=== PATIENT | female | born 1990 | race Caucasian/White ===

== ENCOUNTER → 2016-12-11 | Outpatient (CLI) | payer OTHER ==
[2016-12-11 17:02] LABS: URINE APPEARANCE CLEAR (CLEAR); URINE BILIRUBIN NEG (NEG); URINE COLOR YELLOW; URINE EPITHELIAL CELL AUTO >30 /lpf (0-5); URINE NITRITE NEG (NEG); URINE PH 6.5 (4.5-7.5); URINE SPECIFIC GRAVITY 1.004 (1.000-1.030); UROBILINOGEN NEG (NEG)
[2016-12-11 17:06] LABS: MANUAL MICROSCOPIC REQUIRED? NO; REVIEW REQ? NO
== END | disposition home or self-care (01) ==
LOC: C.LABSPEC 16:18
PROVIDERS: ATTEND Obstetrics & Gynecology
DX: Z34.00 Encounter for supervision of normal first pregnancy, unspecified trimester (principal)

== ENCOUNTER → 2016-12-18 | Outpatient (CLI) | payer OTHER ==
[2016-12-18 14:31] LABS: BASO % 0.1 %; BASO ABS # 0.01 K/uL (0-0.2); COMPLETE YES; HEMATOCRIT 38.1 % (37-47); IG% 0.2 %; LYMPH % 18.3 %; LYMPH ABS # 1.72 K/uL (1.2-3.4); MEAN CELL VOLUME 81.4 fL (80-100); MEAN CORPUSCULAR HEMOGLOBIN 27.1 pg (25-34); MEAN CORPUSCULAR HGB CONC 33.3 g/dl (32-36); MONO % 6.7 %; NEUT % 74.7 %; PLATELET COUNT 323 K/uL (130-400); RED BLOOD COUNT 4.68 M/uL (4.2-5.4); WHITE BLOOD COUNT 9.38 K/uL (4.8-10.8)
[2016-12-21 03:20] LABS: CHLAMYDIA TRACH RNA*** NOT DETECTED (NOT DETECTED); GC (NEIS GONORRHOEAE)RNA** NOT DETECTED (NOT DETECTED)
== END | disposition home or self-care (01) ==
LOC: C.LAB1850 12:40
PROVIDERS: ATTEND Obstetrics & Gynecology
DX: Z34.00 Encounter for supervision of normal first pregnancy, unspecified trimester (principal)

== ENCOUNTER → 2016-12-18 | Outpatient (CLI) | payer OTHER | END | disposition home or self-care (01) | LOC: C.PAPS 16:08 | PROVIDERS: ATTEND Obstetrics & Gynecology | DX: Z12.4 Encounter for screening for malignant neoplasm of cervix (principal) ==

== ENCOUNTER → 2017-01-15 | Outpatient (CLI) | payer OTHER ==
[~2017-01-15] MED LIST: MTR600X PO; OXYC-57 PO
== END | disposition home or self-care (01) ==
LOC: C.LABSPEC 15:16
PROVIDERS: ATTEND Obstetrics & Gynecology
DX: Z34.01 Encounter for supervision of normal first pregnancy, first trimester (principal)

== ENCOUNTER → 2017-02-12 | Outpatient (CLI) | payer OTHER ==
[2017-02-12 19:47] LABS: GTGD 50 Grams
[2017-02-14 15:02] LABS: AFP CONCENTRATION 29.1 NG/ML; AFP MULTIPLE OF MEDIAN 0.93; AFPTS GESTATIONAL AGE 16.7 WEEKS; AFPTS INSULIN DEP DIABETIC? NO; AFPTS MATERNAL WT 185 LBS; ALPHA-FETOPROTEIN RACE CAUCASIAN=W; HISTORY OF NTD NO; REPEAT SAMPLE? NO
== END | disposition home or self-care (01) ==
LOC: C.LAB1850 14:02
PROVIDERS: ATTEND Obstetrics & Gynecology
DX: Z34.01 Encounter for supervision of normal first pregnancy, first trimester (principal)

== ENCOUNTER → 2017-05-07 | Outpatient (CLI) | payer OTHER ==
[2017-05-07 12:06] LABS: HEMATOCRIT 35.3 % (37-47)
[2017-05-07 12:53] LABS: GTGD 50 Grams
[2017-05-07 15:15] LABS: URINE APPEARANCE CLEAR (CLEAR); URINE BILIRUBIN NEG (NEG); URINE COLOR YELLOW; URINE EPITHELIAL CELL AUTO >30 /lpf (0-5); URINE NITRITE NEG (NEG); URINE SPECIFIC GRAVITY 1.016 (1.000-1.030); UROBILINOGEN NEG (NEG)
[2017-05-07 15:22] LABS: MANUAL MICROSCOPIC REQUIRED? NO; REVIEW REQ? NO
== END | disposition home or self-care (01) ==
LOC: C.LAB1850 10:21
PROVIDERS: ATTEND Obstetrics & Gynecology
DX: Z34.02 Encounter for supervision of normal first pregnancy, second trimester (principal)

== ENCOUNTER → 2017-07-02 | Outpatient (CLI) | payer OTHER | END | disposition home or self-care (01) | LOC: C.LABSPEC 15:59 | PROVIDERS: ATTEND Obstetrics & Gynecology | DX: Z34.03 Encounter for supervision of normal first pregnancy, third trimester (principal) ==

== ENCOUNTER 2017-07-30 14:01 | Inpatient (IN) | payer OTHER ==
[~2017-07-30] VITALS: Ht 162.6 cm; Wt 94.0 kg
[2017-07-30] MEDS ORDERED: LACTATED RINGER'S 1000ML 1,000 ML IV SCH ×2 (14:39→16:12)
[2017-07-30] MEDS ORDERED: CITRIC ACID/SODIUM CITRATE 15 ML UDC ONE (14:45)
[2017-07-30] MEDS ORDERED: CEFAZOLIN IV 1,000 MG in DEXTROSE 5% 50ML 50 ML IV ONE (14:45)
[2017-07-30] MEDS ORDERED: MoRPHine SULFATE PF 1 MG/ML 10 ML AMP/VIAL ONE (14:47)
[2017-07-30] MEDS ORDERED: PHENYLEPHRINE 100MCG/ML 5ML SYR ONE (14:47)
[2017-07-30] MEDS ORDERED: OXYTOCIN INJ 10 UNITS/ML VIAL ONE ×2 (14:47→16:03)
--- NOTE | 2017-07-30 14:48 | Medical Student: [facility] ---
Med Student History & Physical Date of Service Jul 30, 2017. Chief Complaint Recurrent decelerations on NST History of Present Illness Source: patient, clinic records 27 Year old F with , CRISPIN of 07/25/17 by LMP, 40 weeks and 5 days of GA presents for repetitive variable decelerations on Heart Tracing during NST. 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 She is feeling contractions but is unsure as to whether they are patterned or not. She believes that they have mostly been sporadic since Sunday. She denies any fluid leakage but states that she has had some red-brown discharge for the past couple days. She is feeling strong, consistent movement. She denies any SOB, chest pain, swelling of hands and feet. She states that she has felt some dizziness over the past 24 hours and some nausea but no vomiting. 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 GERD 2. Bipolar Disease Past Surgical History Tonsillectomy, adenoidectomy Social History Prior to : Socially drinks alcohol, none since . Denies any cigarette or other tobacco use, denies any recreational drug use. Smoking Status: Former Smoker Smokeless Tobacco Use: No Alcohol Use: none Drug Use: none Marital Status: Housing status: lives with family Occupational Status: employed Allergies Coded Allergies: NO KNOWN DRUG ALLERGIES (Verified Allergy, Unknown, `, 07/30/17) Review of Systems Constitutional: No fever, No chills Respiratory: No shortness of breath Cardiovascular: No chest pain Abdomen: No pain, No nausea, No vomiting Musculoskeletal: No swelling Genitourinary - Female: + vaginal bleeding (Some red-brown discharge, spotting. 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 Heart tracing shows variable recurrent decelerations. Plan: 1. Admit to L&D 2. Monitor mother and fetus with tocometer and External Monitoring 3. NPO, IVF 4. CBC, Cefazolin 5. Prepare for stat C/S THIS WAS NOT A STAT C/S although emergent, the findings did not require proceeding with stat c/s. Please disregard. JACQUELINE BRAND MD
[2017-07-30] MEDS ORDERED: CEFAZOLIN IV 2,000 MG in SYRINGE 0 ML IV STA (14:59)
[2017-07-30 15:18] LABS: BASO % 0.1 %; BASO ABS # 0.01 K/uL (0-0.2); HEMATOCRIT 35.5 % (37-47); IG% 0.7 %; LYMPH % 15.2 %; MEAN CELL VOLUME 79.6 fL (80-100); MEAN CORPUSCULAR HEMOGLOBIN 24.9 pg (25-34); MEAN PLATELET VOLUME 9.5 fL (7.4-10.4); MONO % 7.2 %; NEUT % 76.8 %; PLATELET COUNT 250 K/uL (130-400); RED BLOOD COUNT 4.46 M/uL (4.2-5.4); WHITE BLOOD COUNT 11.82 K/uL (4.8-10.8)
[2017-07-30 15:36] LABS: COMPLETE YES; MEAN CORPUSCULAR HGB CONC 31.3 g/dl (32-36)
[2017-07-30] MEDS ORDERED: ONDANSETRON INJ 2 MG/ML 2 ML VIAL ONE (15:51)
[2017-07-30] MEDS ORDERED: EpHEDrine SULFATE 50MG/5ML SYR ONE (15:59)
[2017-07-30] MEDS ORDERED: DIPHTHERIA/TETANUS/PERTUSSIS 0.5 ML SYR/VIAL IM. ONE (16:15)
[2017-07-30] MEDS ORDERED: LANOLIN OINT EXT PRN ×2 (16:15)
[2017-07-30] MEDS ORDERED: PROMETHAZINE HCL INJ 25 MG in SODIUM CHLORIDE 0.9% 50ML 50 ML IV PRN (16:15)
--- NOTE | 2017-07-30 16:25 | [facility] Operative Report ---
Operative Report Operative Date Jul 30, 2017. Pre-Operative Diagnosis 40+5 weeks intrauterine recurrent variable decelerations Post-Operative Diagnosis same meconium stained amniotic fluid nuchal cord x 2 cord wrapped around body Procedure(s) Performed Transverse primary Surgeon Dr. Coleman Supervisor Travel Trailer Surgeon(s) Nursing and Dr. Ayaal Estimated Blood Loss 700cc Findings viable male infant. Normal appearing uterus, fallopian tubes and ovaries bilaterally Fluids 1250cc Specimens cord gases cord blood placenta exam Drains corona, clear urine Anesthesia spinal Complication(s) None Disposition L&D Indications recurrent variable decelerations with closed cervix I attest to the content of the Intraoperative Record and any orders documented therein. Any exceptions are noted below.
[2017-07-30] MEDS ORDERED: OXYTOCIN INJ 20 UNITS in LACTATED RINGER'S 1000ML 1,000 ML IV SCH (16:30)
--- NOTE | 2017-07-30 16:32 | OPERATIVE REPORT ---
DATE OF OPERATION: 07/30/2017 PREOPERATIVE DIAGNOSES: 1. 40+ weeks intrauterine . 2. Category 2 heart rate tracing. 3. Remote from delivery. POSTOPERATIVE DIAGNOSES: 1. Same. 2. Old meconium stained fluid. 3. Nuchal cord x2 and body cord. PROCEDURE: Primary low transverse section. SURGEON: Dr. Jelena Coleman. SHANK TAPER: clinical dental technician. IV FLUIDS: 1250 mL. ESTIMATED BLOOD LOSS: 700 mL. ANESTHESIA: Spinal with Duramorph. FINDINGS: Viable male infant. Apgars pending at the time of this dictation. Evidence of old meconium stained fluid with a nuchal cord x2 and body cord noted. Uterus, tubes, and ovaries bilaterally normal. INDICATIONS: A 27-year-old 1, para 0 at 40 and 5/7 weeks estimated gestational age, who presented from the office when she was on the nonstress test monitor and variable decels were noted. The patient was closed. She is having intermittent contractions, but was not in active labor. Given the heart rate findings remote from delivery, it was recommended that she proceed with section and she agreed. DESCRIPTION OF PROCEDURE: The patient was taken to the operating room and identified. After adequate spinal anesthesia was obtained, she was placed in the supine position with a leftward tilt and prepped and draped in the usual sterile fashion. The knife was used to create a Pfannenstiel skin incision that was carried down to the underlying layer of fascia. The fascia was nicked in the midline and this opening was extended laterally using Taylor scissors. The rectus muscles were dissected off the overlying fascia both sharply and bluntly. This happened anteriorly and superiorly. The rectus muscles were bluntly in the midline. The peritoneal cavity was bluntly entered into. This opening was stretched. The bladder blade was placed. The vesicouterine peritoneum was elevated and opened up into sharply. This was extended laterally and the bladder flap was created digitally. The bladder blade was replaced. Knife was used to create a hysterotomy with identification of dark meconium fluid. The hysterotomy was then stretched. The shelf drier operator's hand was placed through the hysterotomy and the bladder blade was removed. With fundal pressure, the head was flexed and delivered. The nuchal cord x2 was reduced. The nose and mouth were bulb suctioned. The shoulders and body were delivered. The cord was doubly clamped and cut and the infant was handed off to the awaiting pediatricians. Cord blood and cord gases were obtained. The placenta was manually expressed. The uterus was exteriorized and cleared of all clots and debris. The hysterotomy was closed in a running interlocking fashion followed by a second imbricating layer of 0 Vicryl. Hemostasis was inadequate in the midline and therefore, 2 [id number] sutures of 0 Vicryl placed for excellent hemostasis. The pelvis was irrigated. The uterus was returned to the abdomen. The gutters were cleared of all clots and debris. The hysterotomy was reinspected and noted to be hemostatic. The fascia was then closed in a running fashion using 0 Vicryl. The subcutaneous fat was copiously irrigated. The subcutaneous tissue was reapproximated using 2-0 chromic. The skin was then closed in a subcuticular fashion using 4-0 Vicryl. All sponge, lap and needle counts were correct x2. The patient was returned to the recovery room in stable condition. I attest to the content of the Intraoperative Record and any orders documented therein. Any exception s are noted below.
[2017-07-30] MEDS ORDERED: NALOXONE HCL INJ 1 MG in SODIUM CHLORIDE 0.9% 1000ML 1,000 ML IV PRN (16:44)
[2017-07-30] MEDS ORDERED: NALOXONE HCL INJ 0.08 MG in SYRINGE 1.8 ML IV PRN (16:44)
[2017-07-30] MEDS ORDERED: SODIUM CHLORIDE 0.9% 1000ML 1,000 ML IV PRN (16:44)
[2017-07-30] MEDS ORDERED: LACTATED RINGER'S 1000ML 500 ML IV PRN (16:44)
[2017-07-30] MEDS ORDERED: MoRPHine SULFATE 2 MG/ML CARP IV PRN (16:45)
[2017-07-30] MEDS ORDERED: NO NARCOTICS OR SEDATIVES SCH (16:45)
[2017-07-30] MEDS ORDERED: NALOXONE HCL 0.4 MG/1 ML VIAL/CARP IV PRN (16:45)
[2017-07-30] MEDS ORDERED: DiphenhydrAMINE HCL 50 MG/ML VIAL IV PRN (16:45)
[2017-07-30] MEDS ORDERED: EpHEDrine SULFATE INJ 50 MG/ML AMP IV PRN (16:45)
[2017-07-30] MEDS ORDERED: NALBUPHINE HCL INJ 10 MG/ML AMP IV PRN (16:45)
[2017-07-30] MEDS ORDERED: MoRPHine SULFATE PF 1 MG/ML 10 ML AMP/VIAL IT ONE (16:45)
[2017-07-30] MEDS ORDERED: ONDANSETRON INJ 2 MG/ML 2 ML VIAL IV PRN (16:45)
--- NOTE | 2017-07-30 16:46 | Anesthesiology Progress Note ---
Anesthesia Post Op Note Date & Time Jul 30, 2017 at 16:46 Notes Mental Status: alert / awake / arousable, participated in evaluation Pt Amnestic to Procedure: Yes Nausea / Vomiting: adequately controlled Pain: adequately controlled Airway Patency, RR, SpO2: stable & adequate BP & HR: stable & adequate Hydration State: stable & adequate Neuraxial Anesthesia: was administered, sensory block is resolving Anesthetic Complications: no major complications apparent
--- NOTE | 2017-07-30 17:02 | Medical Student: [facility] ---
Immediate Operative Summary Operative Date Jul 30, 2017. Pre-Operative Diagnosis of 40 weeks 5 days with recurrent variable decelerations Post-Operative Diagnosis of 40 weeks 5 days with recurrent variable decelerations Procedure(s) Performed Low Transverse Section Surgeon Dr. Coleman Buckle Coverer Surgeon(s) Melissa Shultz, Steam Conditioning Operator Estimated Blood Loss 700cc Findings Fetus with nuchal chord x2, meconium stained amniotic fluid, and chord wrapped around the body. Normal uterus and adnexa Fluids (cc crystalloids) 1250 cc Specimens Placenta Chord Blood Drains Zavala Catheter Anesthesia Spinal Block Complication(s) None Disposition L&D
[2017-07-30] MEDS: KETOROLAC TROMETHAMINE 30 MG/ML VIAL IV. PRN (17:42)
[2017-07-30 18:07] VITALS: Ht 162.6 cm; Wt 94.0 kg
[2017-07-30] MEDS: SIMETHICONE 80 MG CHEW PO SCH (19:00)
[2017-07-30] MEDS: RANITIDINE HCL 150 MG TAB PO SCH (20:00)
[2017-07-30] MEDS: DOCUSATE SODIUM 100 MG CAP PO SCH (20:00)
[2017-07-30 20:17] LABS: HEMATOCRIT 29.3 % (37-47)
[2017-07-30 20:35] VITALS: O2SAT 100
[2017-07-30 20:40] VITALS: BP 102/68; PULSE 97; TEMP 36.9; O2SAT 100
[2017-07-30 21:30] VITALS: O2SAT 100
[2017-07-30 22:30] VITALS: O2SAT 99
[2017-07-30 23:55] VITALS: BP 104/70; PULSE 99; TEMP 37.2; O2SAT 100
[2017-07-31] VITALS (15 sets, daily range): BP systolic 94–110; BP diastolic 59–69; PULSE 89–116; TEMP 36.9–37.1; O2SAT 98–100
[2017-07-31] MEDS: KETOROLAC TROMETHAMINE 30 MG/ML VIAL IV. PRN (04:50)
[2017-07-31] MEDS ORDERED: CEFAZOLIN IV 2,000 MG in DEXTROSE 5% 50ML 50 ML IV SCH (06:00)
[2017-07-31 06:01] LABS: HEMATOCRIT 24.6 % (37-47); MEAN CELL VOLUME 79.4 fL (80-100); MEAN CORPUSCULAR HEMOGLOBIN 25.5 pg (25-34); MEAN CORPUSCULAR HGB CONC 32.1 g/dl (32-36); MEAN PLATELET VOLUME 9.3 fL (7.4-10.4); PLATELET COUNT 212 K/uL (130-400); WHITE BLOOD COUNT 14.21 K/uL (4.8-10.8)
--- NOTE | 2017-07-31 06:20 | OB/GYN Progress Note ---
PLUMBER PIPE FITTING Progress Note Date of Service Jul 31, 2017. Subjective conversation w/ patient, physical exam, chart review, lab review Ambulation: ambulating normally Voiding: no voiding problems Diet Tolerance: Regular Diet Lochia: Small Feeding Type: Breast Feeding Pain: mild pain Review of Systems Constitutional: No fever, No chills Cardiac: No chest pain Abdomen: No nausea, No vomiting Female : No dysuria Objective Vital Signs Date Time Temp Pulse Resp B/P (MAP) Pulse Ox O2 Delivery O2 Flow Rate FiO2 07/31/17 04:30 16 100 07/31/17 04:30 37.0 116 16 110/69 (83) 100 Room Air 07/31/17 03:15 16 99 07/31/17 02:00 16 100 07/31/17 01:00 18 100 07/30/17 23:55 100 Room Air 07/30/17 23:55 18 100 07/30/17 23:55 37.2 99 18 104/70 (81) 100 Room Air 07/30/17 22:30 16 99 07/30/17 21:30 18 100 07/30/17 20:40 36.9 97 16 102/68 (79) 100 Room Air 07/30/17 20:35 100 Room Air 07/30/17 20:35 18 100 Physical Exam General Appearance: WELL-APPEARING Respiratory/Chest: lungs clear, normal breath sounds Cardiovascular: regular rate, rhythm Abdomen: normal bowel sounds, non tender, soft Fundus: Firm, Relation to Umbilicus Incision Description: Clean, Dry & Intact Extremities: non-tender, no pedal edema Laboratory Results Last 24 Hours Test 07/30/17 14:55 07/30/17 20:07 07/31/17 05:41 White Blood Count 11.82 K/uL 14.21 K/uL Red Blood Count 4.46 M/uL 3.10 M/uL Hemoglobin 11.1 g/dL 9.4 g/dL 7.9 g/dL Hematocrit 35.5 % 29.3 % 24.6 % Mean Corpuscular Volume 79.6 fL 79.4 fL Mean Corpuscular Hemoglobin 24.9 pg 25.5 pg Mean Corpuscular Hemoglobin Concent 31.3 g/dl 32.1 g/dl Platelet Count 250 K/uL 212 K/uL Mean Platelet Volume 9.5 fL 9.3 fL Neutrophils (%) (Auto) 76.8 % Lymphocytes (%) (Auto) 15.2 % Monocytes (%) (Auto) 7.2 % Eosinophils (%) (Auto) 0.0 % Basophils (%) (Auto) 0.1 % Neutrophils # (Auto) 9.08 K/uL Lymphocytes # (Auto) 1.80 K/uL Monocytes # (Auto) 0.85 K/uL Eosinophils # (Auto) 0.00 K/uL Basophils # (Auto) 0.01 K/uL RDW Standard Deviation 40.3 fL 40.5 fL RDW Coefficient of Variation 14.0 % 14.0 % Immature Granulocyte % (Auto) 0.7 % Immature Granulocyte # (Auto) 0.08 K/uL Assessment and Plan Post-Op Day Number: 1 Continue Routine Care: A/P: This is a 27 y/o female, , s/p day 1. She is ambulating and clinically stable. Plan: - Vitals signs are reviewed and WNL (Tmax 37.2 ) - Last Hgb is 7.9 - Blood type O+, GBS pos, Rubella Immune - Routine post operative care - Encourage ambulation, monitor and control pain with medication as needed, continue with regular diet as tolerated and monitor lochia - Stool softeners and sitz bath recommended - Encourage breast feeding and educate about breast feeding Resident Involvement: Resident Care Provided Care Provided: OB Delivery
[2017-07-31 06:37] LABS: BASO % 0.1 %; BASO ABS # 0.01 K/uL (0-0.2); COMPLETE YES; EOS % 0.1 %; IG% 0.5 %; LYMPH % 11.8 %; LYMPH ABS # 1.68 K/uL (1.2-3.4); MONO % 8.2 %; NEUT % 79.3 %
--- NOTE | 2017-07-31 06:57 | Progress Note ---
Subjective Jul 31, 2017. Subjective conversation w/ patient, physical exam Ambulation: ambulating normally Voiding: corona catheter in place Passing Gas: Yes Diet Tolerance: Regular Diet Lochia: Small Comment: good pain control. she notes baby is intubated and sedated in [place]. she thinks the dx is pulmonary hypertension Objective Vital Signs Date Time Temp Pulse Resp B/P (MAP) Pulse Ox O2 Delivery O2 Flow Rate FiO2 07/31/17 06:20 16 100 07/31/17 05:30 16 99 07/31/17 04:30 16 100 07/31/17 04:30 37.0 116 16 110/69 (83) 100 Room Air 07/31/17 03:15 16 99 07/31/17 02:00 16 100 07/31/17 01:00 18 100 07/30/17 23:55 100 Room Air 07/30/17 23:55 18 100 07/30/17 23:55 37.2 99 18 104/70 (81) 100 Room Air 07/30/17 22:30 16 99 07/30/17 21:30 18 100 07/30/17 20:40 36.9 97 16 102/68 (79) 100 Room Air 07/30/17 20:35 100 Room Air 07/30/17 20:35 18 100 Physical Exam General Appearance: WELL-APPEARING, WD/WN, NO APPARENT DISTRESS Respiratory/Chest: lungs clear Cardiovascular: regular rate, rhythm Abdomen: non tender, soft Fundus: Firm, Tender (appropriately), Relation to Umbilicus (1 down) Incision Description: Clean, Dry & Intact Extremities: non-tender Laboratory Results Last 24 Hours Test 07/30/17 14:55 07/30/17 20:07 07/31/17 05:41 White Blood Count 11.82 K/uL 14.21 K/uL Red Blood Count 4.46 M/uL 3.10 M/uL Hemoglobin 11.1 g/dL 9.4 g/dL 7.9 g/dL Hematocrit 35.5 % 29.3 % 24.6 % Mean Corpuscular Volume 79.6 fL 79.4 fL Mean Corpuscular Hemoglobin 24.9 pg 25.5 pg Mean Corpuscular Hemoglobin Concent 31.3 g/dl 32.1 g/dl Platelet Count 250 K/uL 212 K/uL Mean Platelet Volume 9.5 fL 9.3 fL Neutrophils (%) (Auto) 76.8 % 79.3 % Lymphocytes (%) (Auto) 15.2 % 11.8 % Monocytes (%) (Auto) 7.2 % 8.2 % Eosinophils (%) (Auto) 0.0 % 0.1 % Basophils (%) (Auto) 0.1 % 0.1 % Neutrophils # (Auto) 9.08 K/uL 11.27 K/uL Lymphocytes # (Auto) 1.80 K/uL 1.68 K/uL Monocytes # (Auto) 0.85 K/uL 1.17 K/uL Eosinophils # (Auto) 0.00 K/uL 0.01 K/uL Basophils # (Auto) 0.01 K/uL 0.01 K/uL RDW Standard Deviation 40.3 fL 40.5 fL RDW Coefficient of Variation 14.0 % 14.0 % Immature Granulocyte % (Auto) 0.7 % 0.5 % Immature Granulocyte # (Auto) 0.08 K/uL 0.07 K/uL Red Blood Cell Morphology Unremarkable Assessment and Plan Post-, Post-Op Day#: 1 Continue Routine Care: stable, routine care. hgb this am is 7.9. ambulate, d/c corona and await void, adv diet. support given
[2017-07-31] MEDS ORDERED: NALBUPHINE HCL INJ 10 MG/ML AMP IV STA (07:28)
[2017-07-31] MEDS: PRENATAL VITAMIN TAB PO SCH (08:38)
[2017-07-31] MEDS: VENLAFAXINE HCL XR 75 MG CAPXR PO SCH (08:38)
[2017-07-31] MEDS: FERROUS SULFATE 325 MG TAB PO SCH (08:38)
[2017-07-31] MEDS: DOCUSATE SODIUM 100 MG CAP PO SCH ×2 (08:38→19:55)
[2017-07-31] MEDS: SIMETHICONE 80 MG CHEW PO SCH ×4 (08:39→19:54)
[2017-07-31] MEDS: RANITIDINE HCL 150 MG TAB PO SCH ×2 (08:39→19:54)
[2017-07-31] MEDS ORDERED: ONDANSETRON INJ 2 MG/ML 2 ML VIAL IV PRN (09:30)
[2017-07-31] MEDS ORDERED: KETOROLAC TROMETHAMINE 30 MG/ML VIAL IV. PRN (09:30)
[2017-07-31] MEDS ORDERED: ZOLPIDEM TARTRATE 5 MG TAB PO PRN (09:30)
[2017-07-31] MEDS ORDERED: OXYCODONE/ACETAMINOPHEN 5-325 TAB PO PRN (09:30)
[2017-07-31] MEDS ORDERED: DC INTRASPINAL MORPHINE SCH (09:30)
[2017-07-31] MEDS ORDERED: DiphenhydrAMINE HCL 50 MG/ML VIAL IV PRN (09:30)
[2017-07-31] MEDS: OXYCODONE/ACETAMINOPHEN 5-325 TAB PO PRN ×4 (09:32→22:14)
[2017-07-31] MEDS: IBUPROFEN 600 MG TAB PO PRN ×4 (09:32→22:13)
[2017-08-01] MEDS: OXYCODONE/ACETAMINOPHEN 5-325 TAB PO PRN (05:45)
[2017-08-01] MEDS: IBUPROFEN 600 MG TAB PO PRN (05:47)
[2017-08-01 06:31] LABS: HEMATOCRIT 22.7 % (37-47)
[2017-08-01 07:36] VITALS: BP 93/61; PULSE 98; TEMP 36.6; O2SAT 100
[2017-08-01] MEDS ORDERED: OXYC-57 PO (07:39)
[2017-08-01] MEDS ORDERED: MTR600X PO (07:39)
--- NOTE | 2017-08-01 07:39 | Progress Note ---
Subjective Aug 01, 2017. Subjective conversation w/ patient, physical exam, chart review Ambulation: ambulating normally Voiding: no voiding problems, corona catheter in place Diet Tolerance: Regular Diet Lochia: Small Objective Vital Signs Date Time Temp Pulse Resp B/P (MAP) Pulse Ox O2 Delivery O2 Flow Rate FiO2 07/31/17 23:10 Room Air 07/31/17 23:10 36.9 89 16 99/59 (72) 100 Room Air 07/31/17 15:30 100 Room Air 07/31/17 15:30 37.0 98 16 96/63 (74) 100 Room Air 07/31/17 11:55 37.0 100 18 105/69 (81) 99 Room Air 07/31/17 11:15 Room Air 07/31/17 09:30 20 100 07/31/17 08:45 98 Room Air 07/31/17 08:30 18 99 07/31/17 07:45 98 Room Air 07/31/17 07:45 16 98 Physical Exam General Appearance: WELL-APPEARING Abdomen: non tender Fundus: Firm Incision Description: Clean, Dry & Intact Extremities: no calf tenderness Laboratory Results Last 24 Hours Test 08/01/17 06:09 Hemoglobin 7.2 g/dL Hematocrit 22.7 % Assessment and Plan Post-, Post-Op Day#: 2 Continue Routine Care: home discussed Fe
--- NOTE | 2017-08-01 07:40 | Discharge Instructions ---
Discharge Instructions Date of Service Aug 01, 2017. Admission Reason for Admission: Prolonged Monitoring Discharge Discharge Diagnosis / Problem: C/S Discharge Goals Goal(s): Routine recovery after Activity Recommendations Activity Limitations: per Instructions/Follow-up section . Instructions / Follow-Up Instructions / Follow-Up ACTIVITY RECOMMENDATIONS: * Gradual return to full activity over the next 2-3 weeks. * No lifting - nothing heavier than baby over the next 2-3 weeks. * Do not engage in vigorous exercise, sexual activity or sports until cleared by your physician. * Do not drive or operate any motorized equipment until cleared by your physician. * You may shower/bathe daily. MEDICATIONS: For discomfort or pain, you may use Acetaminophen (Tylenol), Ibuprofen (Advil), or Naproxen (Aleve) following the package directions. For constipation you may use Colace following the package directions. BREAST CARE: If you are not breast feeding: * Wear a supportive bra 24 hours a day for one to two weeks. * Avoid stimulating your breasts and nipples as much as possible during the first few weeks after delivery. * When taking a shower, have the warm water hit your back, not breasts. * When your breasts feel full, apply ice packs. Usually three to four times a day helps ease the discomfort. * Take a mild pain medication (Tylenol / Motrin) when you are uncomfortable. If breast feeding: * Use breast milk to lubricate nipples. Lansinoh cream may be used for sore nipples. You do not need to remove cream prior to breast feeding. If using a different brand of cream, check the label for directions regarding removal of cream prior to nursing. * Wear a supportive bra. * If having problems with breasts or breast feeding, call a artist consultant or your health care provider. SPECIAL CARE INSTRUCTIONS: When you are discharged from the hospital, it is important for you to follow the instructions listed below: * During the first week at home, you should be able to care for yourself and your baby. In addition, the usual light household activities are encouraged. * Limit your activities to the way you feel. Do not try to clean the house or move furniture. Be sensible. * If you actively engage in sports and have done so up until the time of your delivery, you may resume these activities as soon as you feel able. This may take up to one month or even longer. Use good judgment. * Continue to take your vitamins for at least six weeks after the of your baby. * Your diet need not be limited unless you were on a special diet before your delivery. Breast-feeding mothers need around 2500 calories per day and at least 64-80 ounces of fluid per day (8 to 10 glasses). * You should eat foods from the four major food groups. Crash diets or fad diets are to be avoided. Eating lean meats, fresh fruits and vegetables, low-fat dairy products, high fiber foods and a regular exercise program, will help you get back to your pre- weight without putting your health at risk. * Constipation is sometimes a problem after delivery. Take a mild laxative as needed. If breast feeding, Milk of Magnesia is acceptable to use. You may use a suppository or Fleets enema. * A daily shower or tub bath is suggested. Wash incision daily with warm soapy water and pat dry. It doesn't need to be covered unless drainage is present. * A bloody vaginal discharge will usually continue until around four weeks . A small amount of bleeding may continue for as long as six weeks. Vaginal discharge changes from the bright red bleeding after delivery to pink then brownish and finally yellowish-pink before becoming white and disappearing. * Bleeding may increase with activity. Your first period may come in 4-8 weeks. If you are breast feeding, your period may be delayed even longer. * [place] (sex) can begin whenever both you and your partner feel comfortable and do not have any form of genital infection. It is recommended that you wait at least six weeks for internal and external healing to occur. If you have questions, please talk to your health care practitioner. A condom should be used to prevent infection and . * Foreplay, gentle intercourse and lubrication is very important the first several times to prevent pain. A water-based lubricant such as K-Y jelly or Astroglide may be used. * If you have RH negative blood and your baby is RH positive, you will receive RHOGAM by injection prior to discharge. The nurse will give you a card to keep with you that has the date and place that you received RHOGAM after delivery. * During your care, you had a Rubella screen done to check for the presence of rubella antibodies in your blood. If your test was negative, you will receive a Rubella vaccine prior to discharge. This vaccine may cause a fever, soreness at the injection site and flu-like symptoms. If these symptoms persist, notify your health care practitioner. is not advised for one month after a Rubella vaccine. * Verbalizes understanding of car seat law as reviewed with patient nursing. * Car Seat hand-out given and reviewed with patient by nursing. * Shaken baby information reviewed with patient by nursing. Call you doctor if: * Heavy bleeding (saturating several pads an hour) or passing clots the size of your fist. * A fever >101 degrees F (38.3 degrees C) on two occasions four hours apart and /or chills. * Unusual pain in the pelvic or vaginal areas. * Call the doctor for any increased redness, drainage or swelling around the incision and any pain unrelieved by prescribed pain medication. * "Baby Blues" lasting longer than two weeks. If you have any questions or concerns, call your health care practitioner at . FOLLOW UP VISIT: * Please call the office at to schedule a 6 week examination. It is important you keep this appointment. It is important for you to make arrangements for either yearly or twice yearly check-ups thereafter. Current Hospital Diet Patient's current hospital diet: Regular OB Diet Discharge Diet Recommended Diet: Regular OB Diet Procedures Procedures Performed: Primary caesarean section with delivery of viable male child at [id number] Pending Studies Studies pending at discharge: no Medical Emergencies . Who to Call and When: Medical Emergencies: If at any time you feel your situation is an emergency, please call 911 immediately. . Non-Emergent Contact Non-Emergency issues call your: [employer] Tanker Driver . . "Provider Documentation" section prepared by Johnathon Morillo. . VTE Core Measure Inpt VTE Proph given/why not?: Dain Rausch, SCD's
[2017-08-01] MEDS: SIMETHICONE 80 MG CHEW PO SCH (07:43)
[2017-08-01] MEDS: FERROUS SULFATE 325 MG TAB PO SCH (07:43)
[2017-08-01] MEDS: DOCUSATE SODIUM 100 MG CAP PO SCH (07:43)
[2017-08-01] MEDS: RANITIDINE HCL 150 MG TAB PO SCH (07:43)
[2017-08-01] MEDS: PRENATAL VITAMIN TAB PO SCH (07:43)
[2017-08-01] MEDS: VENLAFAXINE HCL XR 75 MG CAPXR PO SCH (07:43)
--- NOTE | 2017-08-01 07:56 | Medical Student: [facility] ---
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 Subjective conversation w/ patient, chart review Ambulation: ambulating normally Voiding: no voiding problems, no incontinence Passing Gas: Yes Diet Tolerance: Regular Diet Lochia: Small Notes: 27 Year old F with , PPD #2, s/p . Delivery was complicated only by meconium stained amniotic fluid and nuchal x2. She is recovering well and is hoping for discharge today. She is ambulating well around the unit, has passed gas and has not had any issues voiding. She still has small amounts of red-edis bleeding but less than before. She is able to tolerate a regular diet and denies any nausea or vomiting. She denies any shortness of breath, chest pain, headaches, dizziness, or cramping in her calves. She has some abdominal pain, especially around the incision area, but it is controlled with medications. Review of Systems Constitutional: No fever, No chills Respiratory: No shortness of breath Cardiac: No chest pain Abdomen: + pain, No nausea, No vomiting Female : No dysuria, No incontinence Objective Vital Signs Date Time Temp Pulse Resp B/P (MAP) Pulse Ox O2 Delivery O2 Flow Rate FiO2 07/31/17 23:10 Room Air 07/31/17 23:10 36.9 89 16 99/59 (72) 100 Room Air 07/31/17 15:30 100 Room Air 07/31/17 15:30 37.0 98 16 96/63 (74) 100 Room Air 07/31/17 11:55 37.0 100 18 105/69 (81) 99 Room Air 07/31/17 11:15 Room Air 07/31/17 09:30 20 100 07/31/17 08:45 98 Room Air 07/31/17 08:30 18 99 Physical Exam General Appearance: WELL-APPEARING, WD/WN Respiratory/Chest: lungs clear, normal breath sounds Cardiovascular: regular rate, rhythm, no gallop, no murmur Abdomen: soft Fundus: Firm, Tender, Relation to Umbilicus (right around the umbilicus) Incision Description: Clean, Dry & Intact Extremities: non-tender, no pedal edema, no calf tenderness Blood Type: O +, Rubella: Immune, GBS: Positive Laboratory Results Last 24 Hours Test 08/01/17 06:09 Hemoglobin 7.2 g/dL Hematocrit 22.7 % Assessment and Plan Post-, Post-Op Day Number: 2 Continue Routine Care: 27 Year old F with , PPD #2, s/p . Delivery was complicated only by meconium stained amniotic fluid and nuchal x2. Plan: 1. Vitals reviewed and stable, prepare for discharge today 2. Hgb today was 7.2. Patient is asymptomatic and can be discharged on 2 Fe tablets PO daily. 3. Control pain with Motrin 4. Continue to encourage ambulation
--- NOTE | 2017-08-07 11:33 | Discharge Summary ---
Discharge Summary Date of Service Jul 30, 2017. Date of discharge 08/01/2017. Discharge Summary Admission diagnoses: 40+ weeks intrauterine , category 2 heart rate tracing, remote from delivery Discharge diagnoses: Same, old meconium stained fluid, nuchal cord 2 and body cord Procedures: Primary low transverse section Brief history and Hospital course: 27-year-old 1 para 0 at 40-5/7 weeks estimated gestational age who presented from the office after undergoing nonstress testing for postdates that showed recurrent variable decelerations consistent with a category 2 tracing. The cervix was closed. She was remote from delivery. Given the heart tone monitor findings it was recommended she proceed with section and she agreed. She underwent the above- stated procedure without incident. Her estimated blood loss was 700 cc's. Unfortunately the fetus had to be transferred to a tertiary care center for NICU services. The patient's postop course and recovery was otherwise uncomplicated. Her postop hemoglobin was 7.2. She desired discharge on postop day #2 was given appropriate pain medication prescriptions as well as instruction start follow-up in 6 weeks time. Her instructions were reviewed. She was to continue on iron.
== END 2017-08-01 10:36 | disposition home or self-care (01) | DRG 766 ==
LOC: C.OPB 14:01 → C.LD 14:02 → C.OPB 14:45 → C.LD 14:45 → C.OBG 20:51
PROVIDERS: ADMIT Obstetrics & Gynecology; ATTEND Obstetrics & Gynecology
PROC: 10D00Z1 Extraction of Products of Conception, Low, Open Approach (ICD-10-PCS; principal; 2017-07-30 15:11)
DX: O77.8 Labor and delivery complicated by other evidence of fetal stress (principal); O99.824 Streptococcus B carrier state complicating childbirth; O48.0 Post-term pregnancy; Z3A.40 40 weeks gestation of pregnancy; O69.81X0 Labor and delivery complicated by cord around neck, without compression, not applicable or unspecified